=== PATIENT | female | born 1960 | race Caucasian/White ===

== ENCOUNTER 2016-08-08 09:14 | Emergency (ER) | payer BC, OTHER ==
[~2016-08-08] VITALS: Ht 170.2 cm; Wt 55.0 kg
[~2016-08-08 09:14] MED LIST: BENZ1CAP34 PO; DOXY1CAP91 PO; ENDO5TAB6 PO; SERT-129 PO; WELL150T PO; XANA0.5T PO
[2016-08-08 09:22] VITALS: BP 161/94; PULSE 90; RESP 16; TEMP 98.8; O2SAT 99
[2016-08-08] MEDS ORDERED: BUPR150CR PO (09:29)
[2016-08-08] MEDS ORDERED: ALPR0.5T3 PO (09:29)
[2016-08-08] MEDS ORDERED: SERT-129 PO (09:29)
--- NOTE | 2016-08-08 09:37 | PD ---
HPI Chief Complaint: Psychiatric Symptoms Time Seen by Provider: 09:28 Travel History International Travel<30 days: No Contact w/Intl Traveler<30days: No Traveled to known affect area: No History of Present Illness HPI 55-year-old female brought in by PD under [place] act after being found confused and not making sense in [employer] this morning. The patient has history of anxiety and depression and takes Zoloft. According to PD, the patient had very tangential thoughts and was not making complete sense. She did answer most questions appropriately. They asked her if she was thinking about hurting herself, and she reported that she thinks about it all the time. She then told them that she is running from her boyfriend and then went on to talk about a cat and other random thoughts. She did not do anything today to harm or so. She denies alcohol or drug use. PD contacted the patient's boyfriend who was a sleep and did not even realize that the patient had left their apartment. When talking with the patient, all she tells me is that she had a rough morning. She does not go into any more detail. No physical complaints. PFSH Past Medical History Anxiety: Yes Depression: Yes ?: Not Past Surgical History Surgical History: No Previous Surgery Social History Alcohol Use: No Tobacco Use: Yes (1ppd) Substance Use: No Allergies-Medications (Allergen,Severity, Reaction): Coded Allergies: No Known Allergies (Unverified , 01/21/16) Reported Meds & Prescriptions Reported Meds & Active Scripts Active Reported Wellbutrin SR 12 HR (Bupropion HCl) 150 Mg Tab 150 Mg PO Q12HR Sertraline (Sertraline HCl) 100 Mg Tab 1.5 Tab PO DAILY Alprazolam 0.5 Mg Tab 0.5 Mg PO Q6H PRN Review of Systems Except as stated in HPI: all other systems reviewed are Neg Physical Exam Narrative GENERAL: Well-developed, well-nourished, comfortable, no acute distress. SKIN: Warm and dry. No lacerations, abrasions, or ecchymosis. HEAD: Atraumatic. Normocephalic. EYES: Pupils equal, round, 3 mm, reactive to light. No scleral icterus. No injection or drainage. ENT: Mucous membranes pink and moist. NECK: Trachea midline. No JVD. CARDIOVASCULAR: Regular rate and rhythm. RESPIRATORY: No accessory muscle use. Clear to auscultation. Breath sounds equal bilaterally. GASTROINTESTINAL: Abdomen soft, non-tender, nondistended. MUSCULOSKELETAL: No obvious deformities. No clubbing. No cyanosis. No edema. NEUROLOGICAL: Awake and alert. No obvious cranial nerve deficits. Motor grossly within normal limits. Normal speech. PSYCHIATRIC: Tangential thoughts. Data Data Last Documented VS Vital Signs Date Time Temp Pulse Resp B/P Pulse Ox O2 Delivery O2 Flow Rate FiO2 08/08/16 09:22 98.8 90 16 161/94 99 Orders Complete Blood Count With Diff (08/08/16 09:34) Comprehensive Metabolic Panel (08/08/16 09:34) Drug Screen, Random Urine (08/08/16 09:34) Alcohol (Ethanol) (08/08/16 09:34) Salicylates (Aspirin) (08/08/16 09:34) Tylenol (Acetaminophen) (08/08/16 09:34) Psych Screen (08/08/16 09:34) Urinalysis - C+S If Indicated (08/08/16 09:49) Diet Regular Basic (08/08/16 Lunch) Labs Laboratory Tests Test 08/08/16 09:45 White Blood Count 8.7 TH/MM3 Red Blood Count 4.64 MIL/MM3 Hemoglobin 14.5 GM/DL Hematocrit 42.3 % Mean Corpuscular Volume 91.1 FL Mean Corpuscular Hemoglobin 31.2 PG Mean Corpuscular Hemoglobin 34.3 % Concent Red Cell Distribution Width 13.6 % Platelet Count 321 TH/MM3 Mean Platelet Volume 7.9 FL Neutrophils (%) (Auto) 73.5 % Lymphocytes (%) (Auto) 18.1 % Monocytes (%) (Auto) 6.4 % Eosinophils (%) (Auto) 0.5 % Basophils (%) (Auto) 1.5 % Neutrophils # (Auto) 6.4 TH/MM3 Lymphocytes # (Auto) 1.6 TH/MM3 Monocytes # (Auto) 0.6 TH/MM3 Eosinophils # (Auto) 0.0 TH/MM3 Basophils # (Auto) 0.1 TH/MM3 CBC Comment DIFF FINAL Differential Comment Urine Color YELLOW Urine Turbidity CLEAR Urine pH 5.0 Urine Specific [place] 1.019 Urine Protein NEG mg/dL Urine Glucose (UA) NEG mg/dL Urine Ketones 10 mg/dL Urine Occult Blood NEG Urine Nitrite NEG Urine Bilirubin NEG Urine Urobilinogen LESS THAN 2.0 MG/DL Urine Leukocyte Esterase MOD Urine WBC 4 /hpf Urine Squamous Epithelial 1 /hpf Cells Urine Hyaline Casts 38 /lpf Urine Mucus FEW /lpf Microscopic Urinalysis Comment CULT NOT INDICATED Sodium Level 138 MEQ/L Potassium Level 3.5 MEQ/L Chloride Level 103 MEQ/L Carbon Dioxide Level 22.2 MEQ/L Anion Gap 13 MEQ/L Blood Urea Nitrogen 14 MG/DL Creatinine 0.84 MG/DL Estimat Glomerular Filtration 70 ML/MIN Rate Random Glucose 104 MG/DL Calcium Level 9.3 MG/DL Total Bilirubin 0.4 MG/DL Aspartate Amino Transf 23 U/L (AST/SGOT) Alanine Aminotransferase 21 U/L (ALT/SGPT) Alkaline Phosphatase 103 U/L Total Protein 8.1 GM/DL Albumin 4.6 GM/DL Salicylates Level 5.3 MG/DL Urine Opiates Screen NEG Acetaminophen Level LESS THAN 2.0 MCG/ML Urine Barbiturates Screen NEG Urine Amphetamines Screen NEG Urine Benzodiazepines Screen POS Urine Cocaine Screen NEG Urine Cannabinoids Screen NEG Ethyl Alcohol Level LESS THAN 3 MG/DL MDM Medical Decision Making Medical Screen Exam Complete: Yes Emergency Medical Condition: Yes Medical Record Reviewed: Yes Differential Diagnosis Acute psychosis, nick, alcohol/drug intoxication, UTI, metabolic abnormality Narrative Course Labs reviewed. Urine drug screen is positive for benzodiazepines. The patient is medically cleared for psychiatric evaluation and disposition by them. Jeff Fatima MD Aug 08, 2016 09:37
[2016-08-08 10:05] LABS: AUTOMATED NEUTROPHIL # 6.4 TH/MM3 (1.8-7.7); BASOPHIL # 0.1 TH/MM3 (0-0.2); BASOPHIL % 1.5 % (0.0-2.0); EOSINOPHIL % 0.5 % (0.0-4.0); HEMATOCRIT 42.3 % (35.0-46.0); HEMO FLAGS DIFF FINAL; LYMPH % 18.1 % (9.0-44.0); LYMPHOCYTE # 1.6 TH/MM3 (1.0-4.8); MEAN CELL VOLUME 91.1 FL (80.0-100.0); MEAN CORPUSCULAR HEMOGLOBIN 31.2 PG (27.0-34.0); MEAN CORPUSCULAR HGB CONC 34.3 % (32.0-36.0); MONO % 6.4 % (0.0-8.0); NEUT % 73.5 % (16.0-70.0); PLATELET COUNT 321 TH/MM3 (150-450); RED BLOOD COUNT 4.64 MIL/MM3 (4.00-5.30); RED CELL DISTRIBUTION WIDTH 13.6 % (11.6-17.2); WHITE BLOOD COUNT 8.7 TH/MM3 (4.0-11.0)
[2016-08-08 10:14] LABS: BLOOD, URINE NEG (NEG); COMMENT (UR) CULT NOT INDICATED; CULTURE IF INDICATED CULT NOT INDICATED; GLUCOSE,URINE NEG (NEG); HYALINE CAST, URINE 38 /lpf (RARE); KETONE, URINE 10 mg/dL (NEG); MUCUS URINE FEW /lpf (OCC); NITRITE,URINE NEG (NEG); SQUAMOUS EPITHELIAL CELL URINE 1 /hpf (0-5); URINE COLOR YELLOW (YELLW/STRAW)
[2016-08-08 10:18] LABS: AMPHETAMINE, URINE NEG (NEG); BARBITURATES, URINE NEG (NEG); COCAINE, URINE NEG (NEG)
[2016-08-08 10:24] LABS: ANION GAP 13 MEQ/L (5-15)
[2016-08-08 10:27] LABS: ACETAMINOPHEN LESS THAN 2.0 MCG/ML (10.0-30.0); ALKALINE PHOSPHATASE 103 U/L (45-117); ALT (GPT) 21 U/L (10-53); AST (GOT) 23 U/L (15-37); BICARBONATE 22.2 MEQ/L (21.0-32.0); BLOOD UREA NITROGEN 14 MG/DL (7-18); CHLORIDE 103 MEQ/L (98-107); GLOMERULAR FILTRATION RATE 70 ML/MIN (>89); POTASSIUM 3.5 MEQ/L (3.5-5.1); SODIUM (NA) 138 MEQ/L (136-145); TOTAL BILIRUBIN ADULT 0.4 MG/DL (0.2-1.0)
[2016-08-08 11:20] VITALS: BP 132/80; PULSE 88; RESP 20; TEMP 98.5; O2SAT 100
[2016-08-08 14:59] VITALS: BP 142/73; PULSE 76; RESP 18; O2SAT 96
[2016-08-08 18:17] VITALS: BP 157/71; PULSE 80; RESP 18; O2SAT 94
== END 2016-08-08 20:47 ==
LOC: NEPA 09:14 → NEPJ 20:47
DX: R41.82 Altered mental status, unspecified (principal); F17.210 Nicotine dependence, cigarettes, uncomplicated
CPT/HCPCS: 80053; 80307; 80320; 80329; 81001; 85025; 99283; G0480